=== PATIENT | female | born 1930 | race Caucasian/White ===

== ENCOUNTER → 2020-03-31 | Day surgery (SDC) | payer MEDICARE, OTHER ==
[2020-03-26 14:44] LABS: BASOPHILS % 0.4 % (0.0-1.0); EOSINOPHILS # (AUTO) 0.2 (0.0-0.4); EOSINOPHILS % 2.1 % (0.0-6.0); HEMATOCRIT 35.2 % (34.2-44.1); HEMOGLOBIN 11.5 g/dL (12.0-16.0); LYMPHOCYTES # (AUTO) 1.9 (1.0-3.2); LYMPHOCYTES % 25.8 % (18.0-39.1); MEAN CORPUSCULAR HEMOGLOBIN 31.1 pg (28-32); MEAN CORPUSCULAR HGB CONC 32.7 g/dL (31-35); MEAN CORPUSCULAR VOLUME 95.1 fL (81-99); MONOCYTES # (AUTO) 1.9 (0.2-0.8); MONOCYTES % 26.3 % (4.4-11.3); NEUTROPHILS # (AUTO) 3.3 (2.1-6.9); NEUTROPHILS % 45.1 % (38.7-80.0); PLATELET COUNT 141 x10e3/uL (140-360); RED CELL DISTRIBUTION WIDTH 13.5 % (11.7-14.4)
[2020-03-26 15:02] LABS: ANION GAP 13.1 mmol/L (8-16); CALCIUM 9.3 mg/dL (8.4-10.2); CREATININE, SERUM 1.01 mg/dL (0.57-1.11); POTASSIUM 4.1 mmol/L (3.5-5.1)
[2020-03-26 15:56] LABS: LYMPHOCYTES % (MANUAL) 23 % (19-48); MONOCYTES % (MANUAL) 21 % (3.4-9.0); NEUTROPHILS % (MANUAL) 56 % (40-74); POLYCHROMASIA FEW; RBC MORPHOLOGY COMMENT NORMAL
[2020-03-26 15:57] LABS: PLATELET ESTIMATE SLIGHTLY DECREASED
[~2020-03-31] VITALS: Ht 154.9 cm; Wt 59.0 kg
[2020-03-31] VITALS (9 sets, daily range): BP systolic 120–150; BP diastolic 69–77
[~2020-03-31] MED LIST: CARVEDILOL3.125 MG PO; CEFAZOLIN SOD 1 GM VIAL ONE; CLOPIDOGREL75 MG PO; FENTANYL CITRATE/PF 100MCG/2 ML INJ ONE; FUROSEMIDE40 MG PO; LABETALOL HCL 20 ML ONE; LEVOTHYROXINE75 MCG PO; LIDOCAINE 1% W/EPINEPHRINE 20 ML VIAL ONE; MECLIZINE HCL12.5 MG PO; MIDAZOLAM HCL 2 MG/2 ML VIAL ONE; MUCINEX600 MG PO; NITROGLYCERIN0.4 MG SL; NITROGLYCERIN1 EACH TD; PROMETHAZINE HC25 M1 PO; SODIUM CHLORIDE 0.9% 1000ML 1,000 ML ONE; SODIUM CHLORIDE 0.9% 500ML 500 ML ONE; SODIUM CHLORIDE 0.9% 50ML 50 ML ONE; SOTALOL80 MG PO; ULTRAM50 MG PO; VANCOMYCIN 1GM/NS 250 ML 250 ML ONE; XARELTO10 MG PO; ZOFRAN4 MG PO; ZYRTEC10 MG PO
--- NOTE | 2020-03-31 14:15 | NUR ---
1415p Report from Kimberly Holly Identiferx2 pt moved ro room #9. Alert oriented and appropriate, PERRLA, respirations even and unlabored to room air. Pulses x4 extremities equal and palpable. s/p Generator replacement Left chest dressing dry and intact. Motor shows HR 60 AV Seq. Pacer currently atrial paced. VS trend reviewed and medications given. No gross issues,pain,pallor,pressure or dysrhythmia.Son currently not in hospital Dr Cabrera did speak to family regarding f/o 10days. Skin warm and dry integrity appears intact in general. IV left hand presents healthy w/o s/s of infiltration or complaint. Abdomen soft and supple. pt offered toileting, denies need to urinate or defecate. Resting with HOB elevated approx 30o. Personal affects with patient. Pt verbalizes understanding of POC. 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 bed low and locked, side rails up x2 and call light at side. Pt using personal mask for COVID-19 mitigation. DC time scheduled 17:20pm ds/rn
--- NOTE | 2020-03-31 17:00 | NUR ---
1720pm assisted to bathroom and voided successfully.No gross issues pain,pallor,pressure or dysrhythmia.Pt remains paced rhythm 1:1 rate 60--70. Son her discharge paper filled out. Left sc dressing remains dry and intact. Pt meets discharge criteria. VS wnl, alert and oriented. Pt Family Understands discharge instruction. Overall general assess w/o gross outliers. Skin warm, dry, and intact. Right radial dressing soft w/o s/s of hematoma. + neurovascular function of right hand present. IV removed and appears distal tip is intact, [place] staff midwife/apprenticeship director member verifying. Pt maintains mask on for COVID 19 precautions being taken by wheel chair to awaiting car. Transfers w/o gross distress with discharge paperwork in hand.-ds/rn
--- NOTE | 2020-03-31 19:45 | Operative Report ---
DATE OF PROCEDURE: 03/31/2020 SURGEON: Luigi Martel MD DIAGNOSES: 1. Sick sinus syndrome with kasandra-tachyarrhythmia, paroxysmal atrial fibrillation. 2. 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 3. Coronary artery disease. 4. Hypertension. 5. Chronic obstructive pulmonary disease. 6. Severe deafness with cochlear implant. PROCEDURES: 1. Removal of old pacemaker generator. 2. Insertion of new pacemaker generator. ANESTHESIA: 1. Local anesthetic to the left infraclavicular area. 2. Moderate sedation. COMPLICATIONS: None. BLOOD LOSS: None. DESCRIPTION OF PROCEDURE: This 89-year-old patient was brought to the cardiac catheterization laboratory for replacement of an end of life permanent AV sequential pacemaker. The patient was prepped and draped and the left infraclavicular area was infiltrated with local lidocaine. An incision was then made over the old pacemaker generator, which was carefully dissected out and removed the pocket. The atrial and ventricular electrode were tested and found to be having good thresholds. The pocket was inspected for any bleeding and after adequate hemostasis was achieved, the pocket was lavaged with normal saline and vancomycin powder was inserted into the pocket. The new pacemaker generator was then connected to the atrial and ventricular electrodes and positioned in the old pocket. Subcutaneous tissue was closed with continuous suture. Skin was closed with interrupted sutures. Dressing was applied and the patient transferred to the observation area in stable condition. There were no complications. The procedure was well tolerated. Thresholds at the time of implantation. Right ventricular electrode showed an R-wave of 5.1 mV. The resistance was 529 ohms. The stimulation threshold was 1.2 V. For the atrial electrode, the P-wave amplitude was 1.2 mV. Stimulation threshold was 0.9 V and resistance on atrial electrode was 329 V. The new pacemaker generator model was [employer], model #[id number]. The unit is bipolar unit and the pacemaker leads are also bipolar leads. The pacemaker was programmed at pacing rate of 60 beats with upper tracking rate of 120. Transtelephonic device was also given to the patient for pacemaker monitoring. Luigi Martel MD [facility] /[id number]
== END | disposition home or self-care (01) ==
LOC: CATH LAB 11:00
PROVIDERS: ATTEND Internal Medicine Cardiovascular Disease
DX: I49.5 Sick sinus syndrome (principal); Z45.018 Encounter for adjustment and management of other part of cardiac pacemaker; I48.0 Paroxysmal atrial fibrillation; I25.10 Atherosclerotic heart disease of native coronary artery without angina pectoris; I10 Essential (primary) hypertension; J44.9 Chronic obstructive pulmonary disease, unspecified; H91.8X9 Other specified hearing loss, unspecified ear; Z88.6 Allergy status to analgesic agent; Z88.2 Allergy status to sulfonamides; Z88.8 Allergy status to other drugs, medicaments and biological substances; Z01.812 Encounter for preprocedural laboratory examination; Z20.828 Contact with and (suspected) exposure to other viral communicable diseases; Z79.02 Long term (current) use of antithrombotics/antiplatelets
CPT/HCPCS: 33228; 36415; 80048; 85025; C1785; J0690; J2250; J3010; J3370; J3490; J7030; J7040; U0002; 33263; 99152; 99153